=== PATIENT | female | born 1940 | race Caucasian/White ===

== ENCOUNTER 2017-11-07 11:54 | Emergency (ER) | payer MEDICARE ==
--- NOTE | 2017-11-07 14:21 | RAD ---
INDICATION: Left shoulder injury COMPARISON: None TECHNIQUE: Routine frontal, Y and axial views were obtained. FINDINGS: The bony structures, joint spaces, and soft tissues are normal for age. IMPRESSION: NEGATIVE EXAMINATION.
--- NOTE | 2017-11-07 14:22 | RAD ---
INDICATION: Left wrist injury COMPARISON: None TECHNIQUE: AP, lateral, and oblique views were obtained. FINDINGS: There is a comminuted, intra-articular, mildly impacted and angulated distal radial fracture. No other fractures are evident. There is diffuse soft tissue swelling with deformity. There is advanced osteoarthritis about the first CMC articulation. IMPRESSION: INTRA-ARTICULAR FRACTURE DISTAL RADIUS DESCRIBED. UNDERLYING OSTEOARTHRITIS
--- NOTE | 2017-11-07 15:47 | ED ---
Upper Extremity Pain - HPI Summary HPI Summary: Patient is a 77-year-old female who presents with pain and deformity to the left dorsum of the wrist after sustaining a fall 2 days ago. She states she called her mental health advisor who her here to the ED for an x-ray. She denies numbness, tingling. She states she has not tried to shower or change clothes since the incident due to pain. Pain is 4 out of 10, intermittent and throbbing. She endorses pain to the left shoulder and left wrist without pain to the left elbow. Pulses +2 bilaterally. Cap refill < 3. - History of Current Complaint Chief Complaint: EDExtremityUpper Stated Complaint: LT HAND SWOLLEN Time Seen by Provider: 11/07/17 13:28 Hx Obtained From: Patient Mechanism Of Injury: Direct Blow Onset/Duration: Started Hours Ago Timing: Constant Severity Initially: Mild Severity Currently: Mild Pain Location: Wrist Character: Aching Aggravating Factor(s): Movement, Lifting, Flexion, Extension Alleviating Factor(s): Rest, Ice Associated Signs & Symptoms: Positive: Swelling. Negative: Redness, Bruising, Fever, Weakness, Numbness/Tingling Related History: Dominant Hand Right - Risk Factors Non-Orthopedic Risk Factor: Negative DVT Risk Factors: Negative Septic Arthritis Risk Factor: Negative Compartment Syndrome Risk Factors: Pain - Allergies/Home Medications Allergies/Adverse Reactions: Allergies Allergy/AdvReac Type Severity Reaction Status Date / Time Cortisone [Cortisone] Allergy Sneezing Verified 01/02/15 16:26 PMH/Surg Hx/FS Hx/Imm Hx Previously Healthy: Yes Endocrine/Hematology History: Denies: Hx Diabetes Cardiovascular History: Reports: Hx Hypertension Denies: Hx Pacemaker/ICD Respiratory History: Reports: Hx Asthma History: Denies: Hx Renal Disease Sensory History: Denies: Hx Hearing Aid Psychiatric History: Reports: Hx Panic Disorder - NOT ANYMORE? 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 BY DR SANCHEZ Hx Chemotherapy: No Hx Radiation Therapy: No - Surgical History Surgery Procedure, Year, and Place: TONSILS, - Immunization History Hx Pertussis Vaccination: No Immunizations Up to Date: Yes Infectious Disease History: No Infectious Disease History: Denies: Traveled Outside the [place] in Last 30 Days - Social History Occupation: Unemployed Lives: Alone Alcohol Use: Daily Hx Substance Use: No Substance Use Type: Reports: None Hx Tobacco Use: Yes Smoking Status (MU): Heavy Every Day Tobacco Smoker Review of Systems Constitutional: Negative Negative: Fever, Chills, Fatigue Eyes: Negative Cardiovascular: Negative Respiratory: Negative Positive: no symptoms reported, see HPI Positive: Arthralgia - left wrist pain Neurological: Negative All Other Systems Reviewed And Are Negative: Yes Physical Exam Triage Information Reviewed: Yes Vital Signs On Initial Exam: Initial Vitals Temp Pulse Resp BP Pulse Ox 98.4 F 99 18 181/99 98 11/07/17 11:59 11/07/17 11:59 11/07/17 11:59 11/07/17 11:59 11/07/17 11:59 Vital Signs Reviewed: Yes Appearance: Positive: Well-Appearing, Well-Nourished Skin: Positive: Warm, Skin Color Reflects Adequate Perfusion Head/Face: Positive: Normal Head/Face Inspection Eyes: Positive: EOMI, FAHAD, Conjunctiva Clear Neck: Positive: Supple, Nontender, No Lymphadenopathy Respiratory/Lung Sounds: Positive: Clear to Auscultation, Breath Sounds Present Cardiovascular: Positive: RRR, Pulses are Symmetrical in both Upper and Lower Extremities Musculoskeletal: Positive: Pain @ - Left dorsal wrist pain Neurological: Positive: Speech Normal Psychiatric: Positive: Affect/Mood Appropriate AVPU Assessment: Alert Diagnostics - Vital Signs Vital Signs Temp Pulse Resp BP Pulse Ox 11/07/17 11:59 98.4 F 99 18 181/99 98 - Laboratory Lab Statement: Any lab studies that have been ordered have been reviewed, and results considered in the medical decision making process. Course/Dx - Course Course Of Treatment: Patient presents with left wrist dorsal deformity after falling off a couch 2 nights ago. X-ray obtained which shows: IMPRESSION: INTRA-ARTICULAR FRACTURE DISTAL RADIUS DESCRIBED. UNDERLYING OSTEOARTHRITIS. No fracture seen on the shoulder x-ray. She is placed in a distal sugar tong splint. Advised her to call Dr. Sandy today to make an appointment for next week. She is given care instructions. Patient appears to be noncompliant and her next of kin was contacted to assure she is aware that she needs to make an appointment for this. Encouraged Tylenol 650 mg for any discomfort. She is okay for discharge and medicaid cab Called. - Diagnoses Provider Diagnoses: Distal radius fracture Discharge - Discharge Plan Condition: Stable Disposition: HOME Patient Education Materials: Wrist Fracture in Adults (ED) Referrals: Aurelio Roman MD [Medical Doctor] - Federica Martinez MD [Primary Care Provider] - Additional Instructions: Please follow-up with Dr. Roman Ibuprofen 600 mg 3 times daily for pain control Call today or Friday morning to make an appointment with Dr. Roman Keep the splint dry Keep the sling applied at all times
[2017-11-07 17:27] VITALS: BP 178/68
== END 2017-11-07 16:45 | disposition home or self-care (01) ==
LOC: ED 11:54
DX: S52.502A Unspecified fracture of the lower end of left radius, initial encounter for closed fracture (principal); W19.XXXA Unspecified fall, initial encounter; Y92.9 Unspecified place or not applicable; I10 Essential (primary) hypertension; J45.909 Unspecified asthma, uncomplicated; Z72.0 Tobacco use
CPT/HCPCS: 29125; 99282

== ENCOUNTER → 2018-06-19 12:45 | Emergency (ER) | payer MEDICAID, MEDICARE ==
[~2018-06-19 12:45] MED LIST: Mouth Piece, Nicotine* 1 EACH CARTRIDGE INH PRN; Nicotine Inhaler* 10 MG AMP INH ONE; Sulfamethox/Trimethoprim DS 800/160* TAB PO ONE
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
[2018-06-19 16:58] LABS: ABS Basophils 0.1 10^3/ul (0-0.2); ABS Eosinophils 0.1 10^3/ul (0-0.6); ABS Lymphocytes 2.3 10^3/ul (1.0-4.8); ABS Monocytes 0.8 10^3/ul (0-0.8); ABS Nucleated RBC 0 10^3/ul; Eosinophil % 1.5 % (0-6); Hematocrit 41 % (35-47); Hemoglobin 14.2 g/dl (12.0-16.0); Lymphocyte % 27.9 % (25-47); Mean Corpuscular HGB Conc 34 g/dl (31-36); Mean Corpuscular Hemoglobin 33 pg (27-31); Mean Corpuscular Volume 95 fL (80-97); Mean Platelet Volume 7.1 um3 (7.4-10.4); Nucleated Red Blood Cells % 0.1; Platelet Count 253 10^3/ul (150-450); Red Blood Count 4.35 10^6/ul (4.00-5.40); Red Cell Distribution Width 13 % (10.5-15); White Blood Count 8.3 10^3/ul (3.5-10.8)
[2018-06-19 17:20] LABS: EGFR Non-African American 43.6 (>60)
[2018-06-19 18:43] LABS: Urine Appearance Cloudy; Urine Blood Negative (Negative); Urine Color Yellow; Urine Ketones Negative (Negative); Urine Protein 2+(100 mg/dL) (Negative); Urine Red Blood Cell 3+(>10/hpf) (Absent); Urine Specific Gravity 1.017 (1.010-1.030); Urine Urobilinogen Negative (Negative); Urine White Blood Cell 3+(>20/hpf) (Absent)
[2018-06-19 19:08] VITALS: BP 172/74
--- NOTE | 2018-06-21 07:09 | PN ---
Progress Note - Progress Note Date of Service: 06/19/18 Note: Urine culture preliminary grew Escherichia coli 100,000 Patient placed on Keflex prior to discharge We'll await sensitivities
--- NOTE | 2018-06-22 11:14 | PN ---
Progress Note - Progress Note Date of Service: 06/19/18 Note: Final urine culture today is growing >100,000 e.coli resistant to Keflex. Attempted to call pt. today at 1112 with no answer. No mailbox is set up. Will try to call again tomorrow.
== END | disposition home or self-care (01) ==
LOC: ED 12:45
DX: R45.851 Suicidal ideations (principal); N39.0 Urinary tract infection, site not specified; F17.210 Nicotine dependence, cigarettes, uncomplicated
CPT/HCPCS: 36415; 80053; 80307; 80320; 80329; 81003; 81015; 84443; 85025; 87077; 87086; 87186; 93005; 99285; A9270-GY; G0480

== ENCOUNTER 2018-07-08 18:12 | Emergency (ER) | payer MEDICARE ==
[2018-07-08] MEDS ORDERED: Vancomycin(*) 1,000 MG in NS 0.9% 250 ML* 250 ML IVPB ONE (19:37)
[2018-07-08] MEDS ORDERED: Morphine INJ* 4 MG/ML 1 ML SYRINGE (NEW SYRINGE VERSION) IV ONE (19:38)
[2018-07-08] MEDS ORDERED: Piperacillin/Tazobac ADVAN(*) 3.375 GM in NS 0.9% 100 ML* 100 ML IVPB ONE (19:38)
[2018-07-08] MEDS ORDERED: Ondansetron INJ* 2 MG/ML VIAL IV ONE (19:38)
--- NOTE | 2018-07-08 19:40 | ED ---
Hypertension - HPI Summary HPI Summary: A 77 y/o female LEANNA presents to ED c/o HTN. As per triage, "Pt comes in Via EMS for HTN, Last seen as 206/107. Recent in Vitals.No other complaints. No CP" . In the ED room, the patient has a pulse of 77 BPM and O2 saturation of 98%. According to the patient, there is "nothing wrong" with her. She stated that she is not sure whats going on. She stated that she did not come to the ED, her MD called the EMS to bring her to [facility]. She noted that she does not live alone , but lives in an apartment house and lives in [place], [place]. As the ED MD asked why the patient went to go see her PCP, the patient stated, "Why are you asking me these questions, I am having problems remembering and knowing these things". She further noted that she has been having memory problems for years. As per ED nurse, the patient is alert and oriented. She is forgetful and is only taking her Synthroid medication. She stated that she is not taking her HBP medications because no one every told her she had HBP. She went to for some reason, but cannot remember why. The nurse noted that her BP was 220/140 at one point and currently is at 194/114 at 1945. Patient lives alone. - History of Current Complaint Chief Complaint: EDHypertension Stated Complaint: POSS HYPERTENSION Time Seen by Provider: 07/08/18 19:29 Hx Obtained From: Patient Onset/Duration: Still Present Timing: Constant Reported Blood Pressure Prior To Arrival: UNKNOWN Aggravating Factor(s): Nothing Alleviating Factor(s): Nothing Associated Signs & Symptoms: Negative - Allergies/Home Medications Allergies/Adverse Reactions: Allergies Allergy/AdvReac Type Severity Reaction Status Date / Time cortisone Allergy See Comment Verified 06/19/18 12:49 PMH/Surg Hx/FS Hx/Imm Hx Endocrine/Hematology History: Denies: Hx Diabetes Cardiovascular History: Denies: Hx Hypertension, Hx Pacemaker/ICD Respiratory History: Reports: Hx Asthma History: Denies: Hx Renal Disease Sensory History: Denies: Hx Hearing Aid Psychiatric History: Reports: Hx Panic Disorder - NOT ANYMORE? 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 BY DR SANCHEZ Hx Chemotherapy: No Hx Radiation Therapy: No - Surgical History Surgery Procedure, Year, and Place: TONSILS, Infectious Disease History: No Infectious Disease History: Denies: Traveled Outside the US in Last 30 Days - Family History Known Family History: Positive: Other - neg: breast CA - Social History Alcohol Use: Occasionally Hx Substance Use: No Substance Use Type: Reports: None Hx Tobacco Use: Yes Smoking Status (MU): Heavy Every Day Tobacco Smoker Review of Systems Negative: Fever Positive: Other - POSITIVE: HTN All Other Systems Reviewed And Are Negative: Yes Physical Exam - Summary Physical Exam Summary: VITAL SIGNS: Reviewed. GENERAL: Patient is a well-developed and nourished female who is lying comfortable in the stretcher. Patient is not in any acute respiratory distress. HEAD AND FACE: No signs of trauma. No ecchymosis, hematomas or skull depressions. No sinus tenderness. EYES: PERRLA, EOMI x 2, No injected conjunctiva, no nystagmus. EARS: Hearing grossly intact. Ear canals and tympanic membranes are within normal limits. MOUTH: Oropharynx within normal limits. NECK: Supple, trachea is midline, no adenopathy, no JVD, no carotid bruit, no c- spine tenderness, neck with full ROM. CHEST: Symmetric, no tenderness at palpation LUNGS: Clear to auscultation bilaterally. No wheezing or crackles. CVS: Regular rate and rhythm, S1 and S2 present, no murmurs or gallops appreciated. ABDOMEN: Soft, non-tender. No signs of distention. No rebound no guarding, and no masses palpated. Bowel sounds are normal. EXTREMITIES: FROM in all major joints, no edema, no cyanosis or clubbing. NEURO: Alert and oriented x 2. No acute neurological deficits. Speech is normal and follows commands. SKIN: Dry and warm. Patient has bruises on her left foot. GCS: 15 Triage Information Reviewed: Yes Vital Signs On Initial Exam: Initial Vitals Temp Pulse Resp BP Pulse Ox 97.9 F 82 16 201/100 99 07/08/18 18:14 07/08/18 18:14 07/08/18 18:14 07/08/18 18:14 07/08/18 18:14 Vital Signs Reviewed: Yes Diagnostics - Vital Signs Vital Signs Temp Pulse Resp BP Pulse Ox 07/08/18 19:15 73 27 194/114 99 07/08/18 19:14 76 30 96 07/08/18 18:14 97.9 F 82 16 201/100 99 - Laboratory Result Diagrams: 07/08/18 20:08 07/08/18 20:08 Lab Statement: Any lab studies that have been ordered have been reviewed, and results considered in the medical decision making process. - Radiology CXR Radiology Interpretation Completed By: ED Physician - No acute process. Pending official report. - CT BRAIN CT CT Interpretation Completed By: Radiologist - 1. No acute intracranial abnormality. 2. No change from the comparison study. ED PHYSICIAN REVIEWED THIS RADIOLOGY REPORT. - EKG 2100 Cardiac Rate: NL - 73 bpm EKG Rhythm: Sinus Rhythm EKG Interpretation: normal axis, normal interval, no ischemic changes. Re-Evaluation - Re-Evaluation First Eval Re-Evaluation Time: 22:15 Comment: Patient is anxious and requested to go home. Hypertension Course/Dx - Course Course Of Treatment: A 77 y/o female BIBA presents to ED c/o HTN. A Brain CT revealed 1. No acute intracranial abnormality. 2. No change from the comparison study. A EKG revealed an NSR of 73 BPM, normal axis, normal interval and no ischemic changes. A CXR revealed no acute process. In the ED course, the patient recieved Trandate, Morphine, Zofram, Vancomycin and Piperacillin. During reevaluaton, the patient requested to go home and is anxious to get home quickly. Patient will be discharged with a diagnosis of HTN. Patient is to follow up with PCP in 1-2 days. Patient is to monitor BP at home. Patient is agreeable with this plan. - Diagnoses Provider Diagnoses: HTN (hypertension) Discharge - Sign-Out/Discharge Documenting (check all that apply): Patient Departure - DISCHARGE - Discharge Plan Condition: Stable Disposition: HOME Prescriptions: Lisinopril TAB* [Prinivil TAB 10 MG*] 10 mg PO DAILY #30 tab Patient Education Materials: Chronic Hypertension (ED) Referrals: [facility] [Outside] - 2 Days Additional Instructions: FOLLOW UP WITH PRIMARY CARE PROVIDER IN 1-2 DAYS. MONITOR BLOOD PRESSURE AT HOME. RETURN TO ED FOR ANY NEW OR WORSENING SYMPTOMS. - Attestation Statements Document Initiated by Scribe: Yes Documenting Scribe: Conrad Dao Provider For Whom Scribe is Documenting (Include Credential): Annel Gardner MD Scribe Attestation: Conrad Ibarra, scribed for Annel Gardner MD on 07/08/18 at 2229.
[2018-07-08] MEDS ORDERED: Labetalol IV* 5 MG/ML 20 ML VIAL IV PUSH ONE ×2 (19:55→21:53)
[2018-07-08 20:14] LABS: ABS Basophils 0.1 10^3/ul (0-0.2); ABS Eosinophils 0.2 10^3/ul (0-0.6); ABS Lymphocytes 2.5 10^3/ul (1.0-4.8); ABS Monocytes 0.6 10^3/ul (0-0.8); ABS Neutrophils 4.3 10^3/ul (1.5-7.7); ABS Nucleated RBC 0 10^3/ul; Eosinophil % 2.1 % (0-6); Hematocrit 43 % (35-47); Hemoglobin 14.6 g/dl (12.0-16.0); Lymphocyte % 32.7 % (25-47); Mean Corpuscular HGB Conc 34 g/dl (31-36); Mean Corpuscular Hemoglobin 33 pg (27-31); Mean Corpuscular Volume 97 fL (80-97); Nucleated Red Blood Cells % 0.1; Platelet Count 247 10^3/ul (150-450); Red Cell Distribution Width 14 % (10.5-15); White Blood Count 7.7 10^3/ul (3.5-10.8)
[2018-07-08 20:21] LABS: Urine Appearance Clear; Urine Blood Negative (Negative); Urine Color Straw; Urine Ketones Negative (Negative); Urine Protein 1+(30 mg/dL) (Negative); Urine Red Blood Cell Absent (Absent); Urine Specific Gravity 1.006 (1.010-1.030); Urine Urobilinogen Negative (Negative); Urine White Blood Cell Absent (Absent)
[2018-07-08 20:22] LABS: INR 0.92 (0.77-1.02)
[2018-07-08 20:31] LABS: EGFR Non-African American 54.4 (>60)
--- NOTE | 2018-07-08 20:37 | RAD ---
EXAM: CT Head Without Intravenous Contrast EXAM DATE/TIME: 07/08/2018 8:12 PM CLINICAL HISTORY: 77 years old, female; Signs and symptoms; Other: HTN TECHNIQUE: Axial computed tomography images of the head/brain without intravenous contrast. All CT scans at this facility use at least one of these dose optimization techniques: automated exposure control; mA and/or kV adjustment per patient size (includes targeted exams where dose is matched to clinical indication); or iterative reconstruction. COMPARISON: BRAIN WO MRI BRAIN W/O 01/30/2018 12:21 PM FINDINGS: Brain: Chronic ischemic changes. Diffuse atrophy. No mass, acute hemorrhage, or edema. Ventricles: Compensatory ventriculomegaly. Bones/joints: Normal. No acute fracture. Sinuses: Normal as visualized. No acute sinusitis. Mastoid air cells: Normal as visualized. No mastoid effusion. Soft tissues: Small right frontal subcutaneous lipoma. Vasculature: Atherosclerotic calcification. IMPRESSION: 1. No acute intracranial abnormality. 2. No change from the comparison study. To contact [facility] with a general question: [facility] - [phone] For direct physician to physician contact: Physician Hotline - [phone] [facility] ([facility] Facility ID #[id number])
[2018-07-08 22:18] VITALS: BP 158/87
--- NOTE | 2018-07-09 07:56 | RAD ---
Indication: Hypertension. History of tobacco use. Comparison: January 30, 2018 CT. Technique: Sitting AP 2015 hours Report: Elevated lung volumes and both diffuse mild prominence of the interstitial markings and patchy rarefaction of the mid to upper lung zone interstitial markings. No focal pulmonary lesion, compelling alveolar consolidation, pleural effusion, pneumothorax. Negative for cardiomegaly. Prominent central pulmonary vasculature with peripheral attenuation. Unremarkable mediastinal contours. IMPRESSION: #. Stigmata of obstructive lung disease and potential pulmonary arterial hypertension. No acute pulmonary or cardiac process evident. R0
== END 2018-07-08 22:34 | disposition home or self-care (01) ==
LOC: ED 18:12
DX: I10 Essential (primary) hypertension (principal); Z72.0 Tobacco use
CPT/HCPCS: 36415; 70450; 71045; 80053; 81003; 81015; 83735; 84436; 84443; 84484; 85025; 85610; 85730; 93005; 96361; 96374; 96375; 99283

== ENCOUNTER 2020-05-01 15:09 | Inpatient (IN) ==
[2020-05-01 16:35] LABS: ABS Basophils 0.1 10^3/ul (0-0.2); ABS Eosinophils 0.1 10^3/ul (0-0.6); ABS Lymphocytes 1.6 10^3/ul (1.0-4.8); ABS Monocytes 0.6 10^3/ul (0-0.8); Eosinophil % 1.5 %; Hematocrit 33 % (35-47); Hemoglobin 11.4 g/dL (12.0-16.0); Lymphocyte % 21.8 %; Mean Corpuscular HGB Conc 35 g/dL (31-36); Mean Corpuscular Hemoglobin 33 pg (27-31); Mean Corpuscular Volume 96 fL (80-97); Platelet Count 211 10^3/uL (150-450); Red Blood Count 3.42 10^6 /uL (3.70-4.87); Red Cell Distribution Width 14 % (10-15); White Blood Count 7.4 10^3/uL (3.5-10.8)
[2020-05-01 16:40] LABS: INR 1.04 (0.82-1.09)
[2020-05-01 17:17] LABS: Albumin 4.2 g/dL (3.2-5.2); Albumin/Globulin Ratio 1.6 (1-3); Calcium 9.4 mg/dL (8.6-10.3); EGFR African American 48.7 (>60); EGFR Non-African American 40.2 (>60); Globulin 2.7 g/dL (2-4); Potassium 4.6 mmol/L (3.5-5.0); Total Bilirubin 0.5 mg/dL (0.2-1.0); Total Protein 6.9 g/dL (6.4-8.9)
[2020-05-01 17:18] LABS: Urine Appearance Cloudy; Urine Bilirubin Negative (Negative); Urine Blood 1+ (Negative); Urine Color Yellow; Urine Glucose Negative (Negative); Urine Ketones Negative (Negative); Urine Nitrite Positive (Negative); Urine Protein Negative (Negative); Urine Specific Gravity 1.023 (1.010-1.030); Urine Urobilinogen Negative (Negative)
[2020-05-01 17:31] LABS: TSH Ultra Thyroid Stim Horm 8.49 mcIU/mL (0.34-5.60)
[2020-05-01 17:32] LABS: Urine Bacteria 1+ (Absent); Urine Red Blood Cell 1+(3-5/hpf) (Absent); Urine Squamous Epithelial Cell Present (Absent); Urine White Blood Cell 1+(6-10/hpf) (Absent)
[2020-05-01] MEDS ORDERED: Ondansetron 4 mg VIAL 2 MG/ML 2 ml VIAL IV PRN (17:44)
[2020-05-01] MEDS ORDERED: NS 0.9% 1000 ml BAG 1,000 ML IV SCH (17:45)
[2020-05-01 18:25] LABS: Free T3 2.5 pg/mL (2.5-3.9)
[2020-05-01 18:26] LABS: Free T4 0.78 ng/dL (0.61-1.12)
[2020-05-01] MEDS: cefTRIAXone 1 gm/50 mL NS BAG 1 GM/50 ML BAG IVPB SCH (20:44)
[2020-05-01] MEDS: Enoxaparin 30 MG/0.3 ML SYR SUBCUT SCH (20:44)
[2020-05-02 06:39] LABS: Anion Gap 2 mmol/L (2-11); BUN/Creatinine Ratio 22.1 (8-20); Blood Urea Nitrogen 32 mg/dL (6-24); CO2 Carbon Dioxide 28 mmol/L (22-32); Calcium 7.9 mg/dL (8.6-10.3); Chloride 111 mmol/L (101-111); EGFR African American 42.1 (>60); EGFR Non-African American 34.8 (>60); Glucose 83 mg/dL (70-100); Potassium 4.2 mmol/L (3.5-5.0); Sodium 141 mmol/L (135-145)
[2020-05-02] MEDS: Multivitamins/Minerals TAB PO SCH (07:35)
[2020-05-02 09:47] LABS: % Iron Saturation 14 % (15-55); Iron 38 ug/dL (50-212); Total Iron Binding Capacity 272 mcg/dL (250-450); Transferrin 194 mg/dL (203-362); Unsaturated Iron Binding < 257 ug/dL
[2020-05-02] MEDS: Enoxaparin 30 MG/0.3 ML SYR SUBCUT SCH (17:28)
[2020-05-02] MEDS: cefTRIAXone 1 gm/50 mL NS BAG 1 GM/50 ML BAG IVPB SCH (17:28)
[2020-05-02 17:45] LABS: Ferritin 18.6 ng/mL (11-307)
[2020-05-03] MEDS: Multivitamins/Minerals TAB PO SCH (08:19)
[2020-05-03] MEDS: cefTRIAXone 1 gm/50 mL NS BAG 1 GM/50 ML BAG IVPB SCH (17:49)
[2020-05-03] MEDS: Enoxaparin 30 MG/0.3 ML SYR SUBCUT SCH (17:49)
[2020-05-03] MEDS ORDERED: Lorazepam PYXIS KEY PRN (18:35)
[2020-05-03] MEDS: LORazepam 2 mg VIAL 1 ml IV PUSH PRN (21:31)
[2020-05-04] MEDS: Multivitamins/Minerals TAB PO SCH (09:49)
[2020-05-04 14:40] LABS: Cholesterol 133 mg/dL; HDL Cholesterol 42.3 mg/dL; LDL Cholesterol 83 mg/dL; Triglycerides 41 mg/dL
[2020-05-04] MEDS: LORazepam 2 mg VIAL 1 ml IV PUSH PRN (16:55)
[2020-05-04] MEDS: Enoxaparin 30 MG/0.3 ML SYR SUBCUT SCH ×2 (16:56→17:03)
[2020-05-04] MEDS ORDERED: Senna TAB 8.6 mg TAB PO ONE (23:38)
[2020-05-05 06:19] LABS: ABS Eosinophils 0.3 10^3/ul (0-0.6); ABS Lymphocytes 1.5 10^3/ul (1.0-4.8); ABS Monocytes 0.6 10^3/ul (0-0.8); ABS Neutrophils 4.8 10^3/ul (1.5-7.7); Eosinophil % 4.5 %; Hematocrit 27 % (35-47); Hemoglobin 9.2 g/dL (12.0-16.0); Lymphocyte % 21.1 %; Mean Corpuscular HGB Conc 35 g/dL (31-36); Mean Corpuscular Hemoglobin 33 pg (27-31); Mean Corpuscular Volume 96 fL (80-97); Mean Platelet Volume 8.3 fL (7.4-10.4); Platelet Count 191 10^3/uL (150-450); Red Blood Count 2.78 10^6 /uL (3.70-4.87); Red Cell Distribution Width 14 % (10-15); White Blood Count 7.3 10^3/uL (3.5-10.8)
[2020-05-05 06:30] LABS: Calcium 8.3 mg/dL (8.6-10.3); Potassium 4.4 mmol/L (3.5-5.0)
[2020-05-05 06:36] LABS: EGFR Non-African American 47.9 (>60)
[2020-05-05] MEDS: Multivitamins/Minerals TAB PO SCH (10:14)
[2020-05-05] MEDS: LORazepam 2 mg VIAL 1 ml IV PUSH PRN (14:48)
[2020-05-05] MEDS: Enoxaparin 30 MG/0.3 ML SYR SUBCUT SCH (17:24)
[2020-05-06] MEDS: Multivitamins/Minerals TAB PO SCH (08:01)
[2020-05-06] MEDS ORDERED: Senna TAB 8.6 mg TAB PO PRN (09:23)
[2020-05-06] MEDS ORDERED: Magnesium Hydroxide LIQ 30 ML UDC PO PRN (09:23)
[2020-05-06] MEDS: LORazepam 2 mg VIAL 1 ml IV PUSH PRN (13:24)
[2020-05-06] MEDS ORDERED: Haloperidol 5 mg/ml SDV IV/IM 5 MG/ML AMP IV SLOW PU ONE (13:39)
[2020-05-06] MEDS: Enoxaparin 30 MG/0.3 ML SYR SUBCUT SCH (18:09)
[2020-05-07] MEDS: Polyethylene Glycol 3350 17 GM PACKET PO SCH (07:56)
[2020-05-07] MEDS: Multivitamins/Minerals TAB PO SCH (07:56)
[2020-05-07] MEDS ORDERED: Haloperidol 5 mg/ml SDV IV/IM 5 MG/ML AMP IM PRN (10:06)
[2020-05-07] MEDS: Enoxaparin 30 MG/0.3 ML SYR SUBCUT SCH (17:32)
[2020-05-08] MEDS: Polyethylene Glycol 3350 17 GM PACKET PO SCH (07:39)
[2020-05-08] MEDS: Multivitamins/Minerals TAB PO SCH (07:39)
[2020-05-08 08:09] VITALS: BP 124/51
[2020-05-08] MEDS ORDERED: Haloperidol 5 mg/ml SDV IV/IM 5 MG/ML AMP IV SLOW PU ONE (08:53)
== END 2020-05-08 11:05 | DRG 884 ==
LOC: ED 15:09 → MED 15:09
PROVIDERS: ADMIT Internal Medicine; ATTEND Internal Medicine

== ENCOUNTER 2020-07-26 18:50 | Inpatient (IN) ==
[2020-07-26] MEDS ORDERED: Labetalol IV 5 MG/ML 20 ml VIAL IV PUSH ONE (19:11)
[2020-07-26] MEDS ORDERED: Morphine 2 MG/ML SYRINGE IV ONE ×2 (19:50→22:07)
[2020-07-26 20:05] LABS: Urine Appearance Clear; Urine Bilirubin Negative (Negative); Urine Blood Negative (Negative); Urine Color Straw; Urine Glucose Negative (Negative); Urine Ketones Negative (Negative); Urine Nitrite Negative (Negative); Urine Protein 2+(100 mg/dL) (Negative); Urine Specific Gravity 1.008 (1.010-1.030); Urine Urobilinogen Negative (Negative)
[2020-07-26 20:23] LABS: ABS Basophils 0.1 10^3/ul (0-0.2); ABS Eosinophils 0.1 10^3/ul (0-0.6); ABS Lymphocytes 1.1 10^3/ul (1.0-4.8); ABS Neutrophils 10.4 10^3/ul (1.5-7.7); Eosinophil % 0.8 %; Hematocrit 37 % (35-47); Hemoglobin 12.4 g/dL (12.0-16.0); Lymphocyte % 8.4 %; Mean Corpuscular HGB Conc 33 g/dL (31-36); Mean Corpuscular Hemoglobin 30 pg (27-31); Mean Corpuscular Volume 91 fL (80-97); Mean Platelet Volume 7.6 fL (7.4-10.4); Platelet Count 257 10^3/uL (150-450); Red Blood Count 4.11 10^6 /uL (3.70-4.87); Red Cell Distribution Width 14 % (10-15); White Blood Count 12.6 10^3/uL (3.5-10.8)
[2020-07-26 20:41] LABS: Albumin 3.9 g/dL (3.2-5.2); Albumin/Globulin Ratio 1.2 (1-3); BUN/Creatinine Ratio 21.7 (8-20); EGFR African American 52.4 (>60); EGFR Non-African American 43.3 (>60); Globulin 3.2 g/dL (2-4); Potassium 4.1 mmol/L (3.5-5.0); Total Bilirubin 0.5 mg/dL (0.2-1.0); Total Protein 7.1 g/dL (6.4-8.9)
[2020-07-26 20:42] LABS: Urine Bacteria Absent (Absent); Urine Red Blood Cell Trace(0-2/hpf) (Absent); Urine White Blood Cell Trace(0-5/hpf) (Absent)
[2020-07-26 20:52] LABS: Troponin I 0.01 ng/mL (<0.03)
[2020-07-26 21:04] LABS: Activated Partial Thrombo Time 16.6 seconds (26.0-38.0); INR 0.91 (0.82-1.09)
[2020-07-26] MEDS ORDERED: Morphine 2 MG/ML SYRINGE IV PRN (21:47)
[2020-07-26] MEDS ORDERED: Heparin 5000 UNITS/ML 1 mL VIAL SUBCUT SCH (22:00)
[2020-07-26 23:06] LABS: TSH Ultra Thyroid Stim Horm 7.14 mcIU/mL (0.34-5.60)
[2020-07-26] MEDS ORDERED: Magnesium Hydroxide LIQ 30 ML UDC PO PRN (23:48)
[2020-07-27] MEDS ORDERED: Heparin 5000 UNITS/ML 1 mL VIAL SUBCUT SCH (06:00)
[2020-07-27 06:26] LABS: ABS Basophils 0.1 10^3/ul (0-0.2); ABS Eosinophils 0.1 10^3/ul (0-0.6); ABS Lymphocytes 1.3 10^3/ul (1.0-4.8); ABS Neutrophils 8.3 10^3/ul (1.5-7.7); Eosinophil % 0.7 %; Hematocrit 38 % (35-47); Hemoglobin 12.6 g/dL (12.0-16.0); Lymphocyte % 11.8 %; Mean Corpuscular HGB Conc 33 g/dL (31-36); Mean Corpuscular Hemoglobin 31 pg (27-31); Mean Corpuscular Volume 92 fL (80-97); Mean Platelet Volume 7.7 fL (7.4-10.4); Platelet Count 256 10^3/uL (150-450); Red Blood Count 4.14 10^6 /uL (3.70-4.87); Red Cell Distribution Width 14 % (10-15); White Blood Count 10.7 10^3/uL (3.5-10.8)
[2020-07-27 06:42] LABS: BUN/Creatinine Ratio 19.5 (8-20); Calcium 9.2 mg/dL (8.6-10.3); EGFR African American 48.7 (>60); EGFR Non-African American 40.2 (>60); Potassium 4.5 mmol/L (3.5-5.0)
[2020-07-27 07:23] LABS: INR 1.03 (0.82-1.09)
[2020-07-27] MEDS: Polyethylene Glycol 3350 17 GM PACKET PO SCH (10:52)
[2020-07-27] MEDS ORDERED: Lidocaine 1% w EPI 1:100,000 MDV 20 ML VIAL ONE (11:13)
[2020-07-27] MEDS ORDERED: Buffered Lidocaine 1% SYRIN 1 ml INTRADERM ONE (11:49)
[2020-07-27] MEDS ORDERED: ceFAZolin 2 GM PREMIX 2 GM/50 ML BAG ONE (12:30)
[2020-07-27] MEDS ORDERED: Famotidine IV 10 MG/ML 2 ml VIAL (20 mg) IV SLOW PU ONE (12:47)
[2020-07-27] MEDS ORDERED: Famotidine IV 10 MG/ML 2 ml VIAL (20 mg) ONE (13:31)
[2020-07-27] MEDS ORDERED: Phenylephrine IV 10 MG/ML 1 ml VIAL ONE (13:48)
[2020-07-27] MEDS ORDERED: Bupivacaine 0.5% SDV PF 30ML VIAL ONE ×2 (13:51→13:54)
[2020-07-27] MEDS ORDERED: Propofol 10 mg/ml 100 ML BTL ONE (13:54)
[2020-07-27] MEDS ORDERED: Midazolam 2 mg/2 ml VIAL 1 mg/ml 2 ml VIAL (2 mg) ONE (14:18)
[2020-07-27] MEDS ORDERED: fentaNYL 100 mcg/2 ml 50 MCG/ML VIAL ONE (14:33)
[2020-07-27] MEDS ORDERED: Ketamine HCL 50 mg/ml 10 ml VIAL (500 MG) ONE (14:42)
[2020-07-27] MEDS ORDERED: Acetaminophen IV 1 GM/100ML 1,000 MG/100 ML VIAL IVPB PRN (15:07)
[2020-07-27] MEDS ORDERED: Naloxone 0.4 mg VIAL 0.4 mg/ml 1 ml VIAL IV PRN (15:07)
[2020-07-27] MEDS ORDERED: fentaNYL 100 mcg/2 ml 50 MCG/ML VIAL IV PRN (15:07)
[2020-07-27] MEDS ORDERED: HYDROmorphone 1 MG/1 ML SYRINGE IV PRN (15:07)
[2020-07-27] MEDS ORDERED: Ondansetron 4 mg VIAL 2 MG/ML 2 ml VIAL IV PRN (15:08)
[2020-07-28] MEDS: CEFAZOLIN 1 GM IVPB SCH ×3 (02:22→18:08)
[2020-07-28 06:21] LABS: ABS Lymphocytes 0.5 10^3/ul (1.0-4.8); ABS Neutrophils 8.9 10^3/ul (1.5-7.7); Hematocrit 35 % (35-47); Hemoglobin 11.7 g/dL (12.0-16.0); Lymphocyte % 5.3 %; Mean Corpuscular HGB Conc 33 g/dL (31-36); Mean Corpuscular Hemoglobin 30 pg (27-31); Mean Corpuscular Volume 92 fL (80-97); Mean Platelet Volume 8.3 fL (7.4-10.4); Platelet Count 256 10^3/uL (150-450); Red Blood Count 3.87 10^6 /uL (3.70-4.87); Red Cell Distribution Width 14 % (10-15); White Blood Count 10.4 10^3/uL (3.5-10.8)
[2020-07-28 06:49] LABS: BUN/Creatinine Ratio 26.3 (8-20); Calcium 8.8 mg/dL (8.6-10.3); EGFR Non-African American 37.2 (>60); Potassium 4.6 mmol/L (3.5-5.0)
[2020-07-28] MEDS: Polyethylene Glycol 3350 17 GM PACKET PO SCH (08:52)
[2020-07-28] MEDS: NS 0.9% 1000 ml BAG 1,000 ML IV SCH (15:49)
[2020-07-29] MEDS: NS 0.9% 1000 ml BAG 1,000 ML IV SCH (05:52)
[2020-07-29 06:09] LABS: Hematocrit 30 % (35-47); Mean Platelet Volume 8.4 fL (7.4-10.4); Platelet Count 214 10^3/uL (150-450)
[2020-07-29 06:27] LABS: Anion Gap 5 mmol/L (2-11); BUN/Creatinine Ratio 32.4 (8-20); Blood Urea Nitrogen 47 mg/dL (6-24); CO2 Carbon Dioxide 27 mmol/L (22-32); Calcium 8.5 mg/dL (8.6-10.3); Chloride 107 mmol/L (101-111); EGFR African American 42.1 (>60); EGFR Non-African American 34.8 (>60); Glucose 100 mg/dL (70-100); Potassium 4.3 mmol/L (3.5-5.0); Sodium 139 mmol/L (135-145)
[2020-07-29 07:22] LABS: Total Iron Binding Capacity 245 mcg/dL (250-450); Transferrin 175 mg/dL (203-362)
[2020-07-29 07:39] LABS: % Iron Saturation 8 % (15-55); Iron < 20 ug/dL (50-212); Unsaturated Iron Binding < 230 ug/dL
[2020-07-29 07:43] LABS: Ferritin 110.7 ng/mL (11-307)
[2020-07-29] MEDS: Polyethylene Glycol 3350 17 GM PACKET PO SCH (10:23)
[2020-07-29] MEDS ORDERED: NS 0.9% 100 ml BAG 100 ML ONE (19:18)
[2020-07-29] MEDS: Iron Sucrose 200 MG in NS 0.9% 100 ml BAG 100 ML IVPB SCH (19:48)
[2020-07-30] MEDS: Iron Sucrose 200 MG in NS 0.9% 100 ml BAG 100 ML IVPB SCH (08:35)
[2020-07-30] MEDS: Polyethylene Glycol 3350 17 GM PACKET PO SCH (08:53)
[2020-07-30 14:09] LABS: Hematocrit 28 % (35-47); Hemoglobin 9.4 g/dL (12.0-16.0)
[2020-07-30 14:26] LABS: BUN/Creatinine Ratio 39.3 (8-20); Calcium 8.9 mg/dL (8.6-10.3); EGFR African American 56.8 (>60); EGFR Non-African American 46.9 (>60); Potassium 4.3 mmol/L (3.5-5.0)
[2020-07-31 05:48] LABS: Hematocrit 27 % (35-47); Hemoglobin 9.2 g/dL (12.0-16.0)
[2020-07-31] MEDS: Iron Sucrose 200 MG in NS 0.9% 100 ml BAG 100 ML IVPB SCH (09:03)
[2020-07-31] MEDS: Polyethylene Glycol 3350 17 GM PACKET PO SCH (09:06)
[2020-07-31] MEDS ORDERED: Senna TAB 8.6 mg TAB PO PRN (10:28)
[2020-07-31 11:34] VITALS: BP 146/57
== END 2020-07-31 16:18 | DRG 469 ==
LOC: ED 18:50 → SSU 21:47
PROVIDERS: ADMIT Hospitalist; ATTEND Internal Medicine

== ENCOUNTER 2020-08-22 20:41 | Inpatient (IN) ==
[2020-08-22 21:48] LABS: ABS Basophils 0.1 10^3/ul (0-0.2); ABS Eosinophils 0.3 10^3/ul (0-0.6); ABS Lymphocytes 1.6 10^3/ul (1.0-4.8); ABS Monocytes 0.7 10^3/ul (0-0.8); ABS Neutrophils 6.3 10^3/ul (1.5-7.7); Eosinophil % 3.5 %; Hematocrit 35 % (35-47); Hemoglobin 11.6 g/dL (12.0-16.0); Lymphocyte % 17.5 %; Mean Corpuscular HGB Conc 33 g/dL (31-36); Mean Corpuscular Hemoglobin 31 pg (27-31); Mean Corpuscular Volume 93 fL (80-97); Mean Platelet Volume 8.1 fL (7.4-10.4); Platelet Count 180 10^3/uL (150-450); Red Blood Count 3.79 10^6 /uL (3.70-4.87); Red Cell Distribution Width 16 % (10-15)
[2020-08-22 21:53] LABS: Urine Appearance Cloudy; Urine Bilirubin Negative (Negative); Urine Blood Negative (Negative); Urine Color Yellow; Urine Glucose Negative (Negative); Urine Ketones Negative (Negative); Urine Nitrite Negative (Negative); Urine Protein Negative (Negative); Urine Specific Gravity 1.021 (1.010-1.030); Urine Urobilinogen Negative (Negative)
[2020-08-22 22:08] LABS: Albumin/Globulin Ratio 0.9 (1-3); BUN/Creatinine Ratio 37.2 (8-20); Calcium 9.3 mg/dL (8.6-10.3); EGFR African American 51.9 (>60); EGFR Non-African American 42.9 (>60); Globulin 3.4 g/dL (2-4); Magnesium 2.3 mg/dL (1.9-2.7); Potassium 4.1 mmol/L (3.5-5.0); Total Bilirubin 0.4 mg/dL (0.2-1.0); Total Protein 6.4 g/dL (6.4-8.9)
[2020-08-22 22:09] LABS: Troponin I 0.01 ng/mL (<0.03)
[2020-08-22] MEDS ORDERED: NS 0.9% 1000 ml BAG 1,000 ML IV SCH (23:00)
[2020-08-23] MEDS ORDERED: Lactated Ringers 1000 ml BAG 1,000 ML IV SCH (02:00)
[2020-08-23] MEDS ORDERED: HONEY TOPICAL PRN (02:08)
[2020-08-23] MEDS: Heparin 5000 UNITS/ML 1 mL VIAL SUBCUT SCH ×2 (07:18→19:54)
[2020-08-23] MEDS: Enalaprilat IV 1.25 mg/ml 1 ml VIAL (1.25 MG) IV PRN ×2 (12:20→17:29)
[2020-08-24] MEDS: Heparin 5000 UNITS/ML 1 mL VIAL SUBCUT SCH ×2 (10:42→20:27)
[2020-08-24 11:14] LABS: ABS Basophils 0.1 10^3/ul (0-0.2); ABS Eosinophils 0.2 10^3/ul (0-0.6); ABS Lymphocytes 1.1 10^3/ul (1.0-4.8); ABS Monocytes 0.5 10^3/ul (0-0.8); ABS Neutrophils 5.8 10^3/ul (1.5-7.7); Hematocrit 36 % (35-47); Hemoglobin 11.6 g/dL (12.0-16.0); Lymphocyte % 14.7 %; Mean Corpuscular HGB Conc 32 g/dL (31-36); Mean Corpuscular Hemoglobin 30 pg (27-31); Mean Corpuscular Volume 93 fL (80-97); Mean Platelet Volume 8.5 fL (7.4-10.4); Nucleated Red Blood Cells % 0.1; Platelet Count 167 10^3/uL (150-450); Red Blood Count 3.85 10^6 /uL (3.70-4.87); Red Cell Distribution Width 16 % (10-15); White Blood Count 7.6 10^3/uL (3.5-10.8)
[2020-08-24 11:29] LABS: Albumin/Globulin Ratio 0.9 (1-3); BUN/Creatinine Ratio 30.3 (8-20); C Reactive Protein 67.4 mg/L (<8.01); Calcium 9.1 mg/dL (8.6-10.3); EGFR African American 65.5 (>60); EGFR Non-African American 54.1 (>60); Globulin 3.3 g/dL (2-4); Magnesium 1.9 mg/dL (1.9-2.7); Potassium 3.6 mmol/L (3.5-5.0); Total Bilirubin 0.5 mg/dL (0.2-1.0); Total Protein 6.3 g/dL (6.4-8.9)
[2020-08-25 05:46] LABS: BUN/Creatinine Ratio 29.8 (8-20); Calcium 8.8 mg/dL (8.6-10.3); EGFR African American 69.5 (>60); EGFR Non-African American 57.4 (>60); Potassium 3.6 mmol/L (3.5-5.0)
[2020-08-25] MEDS: Heparin 5000 UNITS/ML 1 mL VIAL SUBCUT SCH (07:54)
[2020-08-25] MEDS ORDERED: Magnesium Hydroxide LIQ 30 ML UDC PO PRN (14:14)
[2020-08-25] MEDS ORDERED: Senna TAB 8.6 mg TAB PO PRN (14:14)
[2020-08-25 15:30] LABS: Urine Appearance Cloudy; Urine Bilirubin Negative (Negative); Urine Blood 1+ (Negative); Urine Color Yellow; Urine Glucose Negative (Negative); Urine Ketones Negative (Negative); Urine Nitrite Positive (Negative); Urine Protein Negative (Negative); Urine Specific Gravity 1.019 (1.010-1.030); Urine Urobilinogen Negative (Negative)
[2020-08-25 15:41] LABS: Urine Bacteria 2+ (Absent); Urine Red Blood Cell Trace(0-2/hpf) (Absent); Urine Squamous Epithelial Cell Present (Absent); Urine White Blood Cell 1+(6-10/hpf) (Absent)
[2020-08-25] MEDS ORDERED: Lactated Ringers 1000 ml BAG 1,000 ML IV SCH (16:00)
[2020-08-25] MEDS ORDERED: D5W 1000 ml BAG 1,000 ML IV SCH (17:00)
[2020-08-26 18:46] LABS: Calcium 8.8 mg/dL (8.6-10.3); Potassium 3.6 mmol/L (3.5-5.0)
[2020-08-27 04:41] LABS: BUN/Creatinine Ratio 29.3 (8-20); Calcium 8.5 mg/dL (8.6-10.3); EGFR African American 71.3 (>60); EGFR Non-African American 58.9 (>60); Potassium 3.8 mmol/L (3.5-5.0)
[2020-08-27] MEDS ORDERED: cefTRIAXone 1 gm/50 mL NS BAG 1 GM/50 ML BAG IVPB SCH (20:00)
[2020-08-28] MEDS: Nitrofurantoin (monohydrate/macrocrystals) 100 mg CAP PO SCH (22:19)
[2020-08-28] MEDS: Collagenase 250 units/gm OINT 1 tube TOPICAL SCH (22:19)
[2020-08-29] MEDS: Collagenase 250 units/gm OINT 1 tube TOPICAL SCH ×2 (08:50→20:07)
[2020-08-29] MEDS: Nitrofurantoin (monohydrate/macrocrystals) 100 mg CAP PO SCH ×2 (08:50→20:04)
[2020-08-30] MEDS: Nitrofurantoin (monohydrate/macrocrystals) 100 mg CAP PO SCH (09:30)
[2020-08-30] MEDS: Collagenase 250 units/gm OINT 1 tube TOPICAL SCH (09:31)
[2020-08-30 11:45] VITALS: BP 122/64
== END 2020-08-30 13:15 ==
LOC: ED 20:41 → MEDTELE 08-23 01:48 → SSU 08-26 22:53
PROVIDERS: ADMIT Internal Medicine; ATTEND Student in an Organized Health Care Education/Training Program